=== PATIENT | female | born 1990 | race Caucasian/White ===

== ENCOUNTER 2018-06-03 14:39 | Observation (INO) ==
--- NOTE | 2018-06-03 15:03 | Discharge Summary ---
Date of Encounter: 06/03/18 Time of Encounter: 15:01 - Discharge Diagnosis (1) 22 weeks gestation of Priority: Primary Status: Acute Comments: Follow-up with Dr. Shah and MFM as scheduled movement in second trimester discussed Discharge home (2) Decreased movement Priority: Secondary Status: Acute Comments: Resolved with auscultation via Doppler Patient endorses good movement now Qualifiers: Fetus number: single or unspecified fetus Trimester: second trimester Qualified Code(s): O36.8120 - Decreased movements, second trimester, not applicable or unspecified - Discharge Medications Home Medications: OXcarbazepine [Trileptal] 750 mg PO BID 04/03/18 [History] Vll420/Iron Fumarate/FA/Dss [ 19 Tablet] 1 each PO QAM 04/03/18 [History] Zolpidem [Ambien] 12.5 mg PO HS 04/03/18 [History] Allergies/Adverse Reactions: Allergy/AdvReac Type Severity Reaction Status Date / Time codeine Allergy See Verified 04/03/18 22:05 Comments naproxen Allergy See Verified 04/03/18 22:05 Comments Date of admission: 06/03/18 14:39 Primary care physician: PCP NONE Discharging clinician: Katrina Martinez Anticipated date of discharge: 06/03/18 - Patient Status Disposition: Home, Self-Care Condition: Good Functional capacity at discharge: independent ambulation Overall status at discharge: patient is back to baseline - Discharge Instructions Follow Up With: NONE,PCP [Primary Care Provider] - Telma Shah MD [Partnered Physician] - - Diet and Activity Activity: increase activity as tolerated Diet: regular diet 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 She reports she has not felt the baby move in that time. She attempted to elicit movements with ice water and laying down on her left side. She was unsuccessful so she came into the emergency room she was then transferred to L&D where heart tones were auscultated via Doppler and she then immediately began movement. She will be discharged home today wi th usual follow-up in stable condition. Time Attestation: Total time spent providing and/or coordinating discharge services: Time Spent: Less than 30 minutes Exam - Constitutional General appearance IM: A&O X 3 - Respiratory Respiratory exam: Present: CTAB - Cardiovascular Cardiovascular exam IM: Present: RRR, +S1, +S2 - GI/Abdominal GI/Abdominal exam IM: normal bowel sounds, no peritoneal signs - Rectal Rectal exam: deferred - Uterine Tone: Firm - Extremities Exam Extremities exam IM: Present: normal capillary refill, normal inspection, radial pulses palpable and symmetrical - Neurological Exam Neurological exam: alert, CN II-XII intact, normal gait, oriented X3, reflexes normal, no focal deficits, strengths equal and symetr throughout - VTE Reasons for not Prescribing Prophylaxis: Treatment not Indicated - Low risk for VTE
[2018-06-03 15:25] LABS: Amphetamine Screen,Urine Negative ng/mL (Cutoff=1000); Barbiturate Screen,Urine Negative ng/mL (Cutoff=200); Benzodiazepines Screen,Urine Negative ng/mL (Cutoff=200); Cannabinoid Screen,Urine Negative ng/mL (Cutoff = 50); Cocaine Screen,Urine Negative ng/mL (Cutoff= 300); Opiate Screen,Urine Negative ng/mL (Cutoff=300); Phencyclidine Screen,Urine Negative ng/mL (Cutoff=25)
== END 2018-06-03 15:40 | disposition home or self-care (01) ==
LOC: 1NENULAB
PROVIDERS: ADMIT Advanced Practice Midwife; ATTEND Advanced Practice Midwife

== ENCOUNTER → 2018-09-08 20:28 | Observation (INO) ==
[2018-09-08 16:27] LABS: Bilirubin,Urine Negative (Negative); Blood,Urine Negative (Negative); Clarity,Urine Clear (Clear); Color,Urine Yellow (Yellow); Glucose,Urine (UA) Normal (Normal); Ketones,Urine Negative (Negative); Leukocyte Esterase,Urine Small (Negative); Nitrite,Urine Negative (Negative); Protein,Urine Negative (Neg-Trace); Specific Gravity,Urine 1.007 (1.010-1.025); Urobilinogen,Urine Normal (Normal)
[2018-09-08 16:30] LABS: Bacteria,Urine Few per hpf (None-Few); Hyaline Casts,Urine None Seen per lpf (None-Few); RBC,Urine 0-3 per hpf (0-3); Squamous Epithelial Cell,Urine Many per lpf (None-Few); WBC,Urine 0-3 per hpf (0-3)
[2018-09-08 16:40] LABS: Amphetamine Screen,Urine Negative ng/mL (Cutoff=1000); Barbiturate Screen,Urine Negative ng/mL (Cutoff=200); Benzodiazepines Screen,Urine Negative ng/mL (Cutoff=200); Cannabinoid Screen,Urine Negative ng/mL (Cutoff = 50); Cocaine Screen,Urine Negative ng/mL (Cutoff= 300); Opiate Screen,Urine Negative ng/mL (Cutoff=300); Phencyclidine Screen,Urine Negative ng/mL (Cutoff=25)
[2018-09-08 17:09] LABS: Basophils # 0.1 K/mcL (0.0-0.2); Basophils % 0.6 %; Eosinophils # 0.6 K/mcL (0.0-0.6); Hematocrit 33.4 % (35.3-44.9); Hemoglobin 11.1 g/dL (11.5-15.4); Immature Granulocytes % 1.1 % (0-4); Lymphocytes # 2.2 K/mcL (0.6-4.6); Lymphocytes % 17.3 %; Mean Corpuscular HGB Conc 33.2 g/dL (31.6-35.5); Mean Corpuscular Hemoglobin 31.4 pg (28.0-33.3); Mean Corpuscular Volume 94.6 fL (83.0-100.0); Mean Platelet Volume 9.4 fL (9.4-12.4); Monocytes # 1.1 K/mcL (0.0-1.3); Neutrophils # 8.5 K/mcL (1.6-8.9); Platelet Count 251 K/mcL (140-400); Red Blood Count 3.53 M/mcL (3.82-4.97); Red Cell Distribution Width 13.2 % (11.5-14.5)
[2018-09-08 17:24] LABS: Alanine Aminotransferase 10 Units/L (7-52); Aspartate Amino Transferase 15 Units/L (13-39); BUN/Creatinine Ratio 13 (6-26); Blood Urea Nitrogen 8 mg/dL (6-20); Lactate Dehydrogenase 161 Units/L (140-271); Uric Acid 5.3 mg/dL (2.3-7.6); eGFR For Non-African Americans > 60 (> 60)
[2018-09-08 19:10] LABS: Protein/Creatinine Ratio,Urine 0.2 mg/mg (0.00-0.20)
--- NOTE | 2018-09-08 20:14 | Discharge Summary ---
Date of Encounter: 09/08/18 Time of Encounter: 20:14 - Discharge Diagnosis (1) 36 weeks gestation of Priority: Primary Status: Acute Comments: Admitted to observation for pre-eclampsia rule out (2) NST (non-stress test) reactive Priority: Secondary Status: Acute Comments: FHR 130 bpm, moderate variability, +15x15 accels, no decels. (3) Pre-eclampsia during in third trimester, antepartum Priority: Secondary Status: Acute Comments: Labs WNL, PC ratio 0.20 BP's 130-150's over 90's with on two isolate BP's 170/110's Dr. Bassett consulted for plan of care. She spoke with Dr. Payne at [facility] for further recommendations Patient has scheduled NST and appointment with MFM tomorrow with Ultrasound. Will keep appointment and discuss IOL at that time. (4) Polyhydramnios affecting in third trimester Priority: Secondary Status: Acute Comments: Repeat Ultrasound scheduled for tomorrow, 09/09/18 with MFM Last scan on 08/12 MEERA 25.3 (5) Gestational diabetes mellitus in , diet controlled Priority: Secondary Status: Acute Comments: Continue blood sugar monitoring F/U with MFM tomorrow for ultrasound and NST Qualifiers: Trimester: third trimester Qualified Code(s): O24.410 - Gestational diabetes mellitus in , diet controlled (6) History of seizures Priority: Secondary Status: Acute Comments: Continue Trileptal as ordered Follow up with neurology as scheduled. (7) Pruritic urticarial papules and plaques of Priority: Secondary Status: Acute Comments: Patient with itchy rash on back of hands, tops of feet and abdomen. Onset approximately 1-2 days ago. RX for Vistaril given Bile acids drawn to rule out ICP Dr. Bassett consulted for plan of care. - Discharge Medications Prescriptions: New HydrOXYzine Pamoate [Vistaril] 50 mg PO Q6H PRN #120 capsule PRN Reason: Itching No Action OXcarbazepine [Trileptal] 750 mg PO BID Dyn032/Iron Fumarate/FA/Dss [ 19 Tablet] 1 each PO QAM Home Medications: OXcarbazepine [Trileptal] 750 mg PO BID 04/03/18 [History] Tgp762/Iron Fumarate/FA/Dss [ 19 Tablet] 1 each PO QAM 04/03/18 [History] HydrOXYzine Pamoate [Vistaril] 50 mg PO Q6H PRN #120 capsule 09/08/18 [Rx] Allergies/Adverse Reactions: Allergy/AdvReac Type Severity Reaction Status Date / Time codeine Allergy See Verified 04/03/18 22:05 Comments naproxen Allergy See Verified 04/03/18 22:05 Comments latex AdvReac Rash Verified 09/08/18 15:55 Data Procedures and tests throughout hospitalization: Laboratory Tests 09/08/18 09/08/18 09/08/18 16:00 16:00 16:00 WBC RBC Hgb Hct MCV MCH MCHC RDW Plt Count MPV Immature Gran % Seg Neutrophils % Lymphocytes % Monocytes % Eosinophils % Basophils % Neutrophils # Lymphocytes # Monocytes # Eosinophils # Basophils # BUN Creatinine Est GFR ( Amer) Est GFR (Non-Af Amer) BUN/Creatinine Ratio Uric Acid AST ALT Lactate Dehydrogenase Urine Color Yellow Urine Clarity Clear Urine pH 7.0 Ur Specific [place] 1.007 L Urine Protein Negative Urine Glucose (UA) Normal Urine Ketones Negative Urine Blood Negative Urine Nitrite Negative Urine Bilirubin Negative Urine Urobilinogen Normal Ur Leukocyte Esterase Small H Urine Microscopic RBC 0-3 Urine Microscopic WBC 0-3 Ur Squamous Epith Cells Many H Urine Bacteria Few Hyaline Casts None Seen Ur Culture Indicated? NO. A Urine Creatinine 35 Protein/Creatinin Ratio 0.20 Urine Total Protein 7 Urine Opiates Screen Negative Ur Barbiturates Screen Negative Ur Phencyclidine Scrn Negative Ur Amphetamines Screen Negative U Benzodiazepines Scrn Negative Urine Cocaine Screen Negative U Marijuana (THC) Screen Negative Ur Drug Screen Interp See Below 09/08/18 09/08/18 16:43 16:43 WBC 12.6 H RBC 3.53 L Hgb 11.1 L Hct 33.4 L MCV 94.6 MCH 31.4 MCHC 33.2 RDW 13.2 Plt Count 251 MPV 9.4 Immature Gran % 1.1 Seg Neutrophils % 67.0 Lymphocytes % 17.3 Monocytes % 9.0 Eosinophils % 5.0 Basophils % 0.6 Neutrophils # 8.5 Lymphocytes # 2.2 Monocytes # 1.1 Eosinophils # 0.6 Basophils # 0.1 BUN 8 Creatinine 0.61 Est GFR ( Amer) > 60 Est GFR (Non-Af Amer) > 60 BUN/Creatinine Ratio 13 Uric Acid 5.3 AST 15 ALT 10 Lactate Dehydrogenase 161 Urine Color Urine Clarity Urine pH Ur Specific [place] Urine Protein Urine Glucose (UA) Urine Ketones Urine Blood Urine Nitrite Urine Bilirubin Urine Urobilinogen Ur Leukocyte Esterase Urine Microscopic RBC Urine Microscopic WBC Ur Squamous Epith Cells Urine Bacteria Hyaline Casts Ur Culture Indicated? Urine Creatinine Protein/Creatinin Ratio Urine Total Protein Urine Opiates Screen Ur Barbiturates Screen Ur Phencyclidine Scrn Ur Amphetamines Screen U Benzodiazepines Scrn Urine Cocaine Screen U Marijuana (THC) Screen Ur Drug Screen Interp Labs on day of discharge: Labs from last 24 hours 09/08/18 09/08/18 09/08/18 16:43 16:43 16:00 WBC 12.6 H RBC 3.53 L Hgb 11.1 L Hct 33.4 L MCV 94.6 MCH 31.4 MCHC 33.2 RDW 13.2 Plt Count 251 MPV 9.4 Immature Gran % 1.1 Seg Neutrophils % 67.0 Lymphocytes % 17.3 Monocytes % 9.0 Eosinophils % 5.0 Basophils % 0.6 Neutrophils # 8.5 Lymphocytes # 2.2 Monocytes # 1.1 Eosinophils # 0.6 Basophils # 0.1 BUN 8 Creatinine 0.61 Est GFR ( Amer) > 60 Est GFR (Non-Af Amer) > 60 BUN/Creatinine Ratio 13 Uric Acid 5.3 AST 15 ALT 10 Lactate Dehydrogenase 161 Urine Color Urine Clarity Urine pH Ur Specific [place] Urine Protein Urine Glucose (UA) Urine Ketones Urine Blood Urine Nitrite Urine Bilirubin Urine Urobilinogen Ur Leukocyte Esterase Urine Microscopic RBC Urine Microscopic WBC Ur Squamous Epith Cells Urine Bacteria Hyaline Casts Ur Culture Indicated? Urine Creatinine 35 Protein/Creatinin Ratio 0.20 Urine Total Protein 7 Urine Opiates Screen Ur Barbiturates Screen Ur Phencyclidine Scrn Ur Amphetamines Screen U Benzodiazepines Scrn Urine Cocaine Screen U Marijuana (THC) Screen Ur Drug Screen Interp 09/08/18 09/08/18 16:00 16:00 WBC RBC Hgb Hct MCV MCH MCHC RDW Plt Count MPV Immature Gran % Seg Neutrophils % Lymphocytes % Monocytes % Eosinophils % Basophils % Neutrophils # Lymphocytes # Monocytes # Eosinophils # Basophils # BUN Creatinine Est GFR ( Amer) Est GFR (Non-Af Amer) BUN/Creatinine Ratio Uric Acid AST ALT Lactate Dehydrogenase Urine Color Yellow Urine Clarity Clear Urine pH 7.0 Ur Specific [place] 1.007 L Urine Protein Negative Urine Glucose (UA) Normal Urine Ketones Negative Urine Blood Negative Urine Nitrite Negative Urine Bilirubin Negative Urine Urobilinogen Normal Ur Leukocyte Esterase Small H Urine Microscopic RBC 0-3 Urine Microscopic WBC 0-3 Ur Squamous Epith Cells Many H Urine Bacteria Few Hyaline Casts None Seen Ur Culture Indicated? NO. A Urine Creatinine Protein/Creatinin Ratio Urine Total Protein Urine Opiates Screen Negative Ur Barbiturates Screen Negative Ur Phencyclidine Scrn Negative Ur Amphetamines Screen Negative U Benzodiazepines Scrn Negative Urine Cocaine Screen Negative U Marijuana (THC) Screen Negative Ur Drug Screen Interp See Below Date of admission: 09/08/18 15:26 Primary care physician: PCP NONE Discharging clinician: Madyson Lopez Anticipated date of discharge: 09/08/18 - Patient Status Disposition: Home, Self-Care Condition: Good Functional capacity at discharge: independent ambulation Overall status at discharge: patient is progressing back to baseline - Discharge Instructions Follow Up With: NONE,PCP [Primary Care Provider] - Telma Shah MD [Partnered Physician] - 09/09/18 Additional Instructions: LABOR AND DELIVERY DISCHARGE INSTRUCTIONS Signs and Symptoms to be Reported to your Doctor Immediately: * Sudden gush, continuous or intermittent lead of fluid from vagina (note the time of gush and color of fluid) * Onset of bright red vaginal bleeding with or without pain (if you had a vaginal exam during this visit you may notice some dark red spotting. This is normal.) * Lower abdominal cramping or backache that is premenstrual-like feeling. * More than 6 contractions in one hour. * Burning during urination, having to urinate more frequently or pain in your mid-back. * A change in the baby's activity. This could be an increase or decrease in activity. * Severe headache which does not go away with tylenol. * Sudden swelling in the face, hands, arms and/or legs. * Upper abdominal pain - sometimes associated with heartburn or nausea and is not relieved by Maalox, Mylanta or Tums. * Dizziness or blurred vision or visual disturbances (seeing stars/lights). * Kick Counts One hour after a meal, lay down on one side in a quiet place. Count the number of flaquita the baby moves during an hour. If less than 6 movements, notify your physician. Diet: *Force fluids - 8-10 tall glasses of fluid per day. May include popsicles and jello. *Limit caffeine - this includes chocolate, coffee, tea, any soft drink c ontaining such as all ericka, Lamin Yellow and Mountain Dew - Diet and Activity Activity: resume usual activities as tolerated Diet: regular diet Hospital Course ED MANAGER Hospital course: Patient arrived today with multiple complaints. States she has an itchy rash on hands, feet and abdomen that started around 1-2 days ago. Also reports on elevated BP at home of 141/110 with wrist cuff. Patient has no history of GHTN but patient states she takes her BP when she is feeling light headed. She does report positive movement, denies leakage of fluid and vaginal bleeding. She is reporting contractions and she is found to be johan on the toco monitor. Her cervix is 1/thick/high which is unchanged from prior exam about 1 week ago in the office. We don HTN labs while she was here which all returned within normal limits but her BP's were found to be elevated. Patient denies [place], epigastric pain but does report occassional visual disturbance as "seeing stars." Bilateral lower extremities with pitting edema +2 reflexes, negative clonus. Dr. Bassett was consulted for plan of care and she spoke with MFM at [facility] who advised to have patient follow up tomorrow as scheduled for appointment with MFM and ultrasound. At this time they can discuss options for IOL if necessary. Patient also has GDM, diet controlled. She has her BS logs today and all levels are appropriate. Due to clinical presentation, rash and itching appears to be PUPPP and Vistaril RX was sent to pharmacy to control symptoms. Patient instructed on use and side effect of extreme sleepiness. She doesn't drive due to her seizure disorder so she was advised to take the first dose when she was at home so she could see how it will affect her. All of the patient's questions were answered and she and her SO both verbalized understanding of discharge instructions and reasons to return to L&D. Time Attestation: Total time spent providing and/or coordinating discharge services: Time Spent: Less than 30 minutes Exam - Constitutional General appearance IM: A&O X 3, pleasant, no acute distress, answers questions appropriately - Respiratory Respiratory exam: Present: CTAB - Cardiovascular Cardiovascular exam IM: Present: RRR, +S1, +S2 - GI/Abdominal GI/Abdominal exam IM: normal bowel sounds, soft - Rectal Rectal exam: deferred - External exam: normal external exam - Extremities Exam Extremities exam IM: Present: full ROM, normal capillary refill, normal inspection - Neurological Exam Neurological exam: alert, normal gait, oriented X3 - VTE Reasons for not Prescribing Prophylaxis: Treatment not Indicated - Low risk for VTE
== END | disposition home or self-care (01) ==
LOC: 1NENULAB
PROVIDERS: ADMIT Registered Nurse; ATTEND Registered Nurse